=== PATIENT | female | born 1955 | race Two or more races ===

== ENCOUNTER 2024-05-21 18:13 | Emergency (ER) | payer OTHER, BC ==
[~2024-05-21] VITALS: Ht 165.1 cm; Wt 60.6 kg
[2024-05-21] MEDS ORDERED: ESCITALOPRAM OXA5 MG (18:25)
[2024-05-21] MEDS ORDERED: SODIUM CHLORIDE 0.9% 1,000 ML IV ONE (18:30)
[2024-05-21 18:40] LABS: BASOPHILS 0.8 % (0-2); HEMATOCRIT 44.6 % (35.0-50.0); HEMOGLOBIN 15.7 g/dL (12.0-18.0); MCH 35.2 (27-36); MCHC 35.1 g/dl (30-36); MCV 100.4 fl (81-99); NEUTROPHILS 80.2 % (39-80); PLATELET COUNT 405 K/uL (140-440); RBC 4.45 M/ul (4.3-5.7); RDW 12.7 (10.5-15.0)
[2024-05-21] MEDS ORDERED: ondansetron HCL 4 MG/2 ML VIAL IV PRN (18:45)
[2024-05-21 19:26] LABS: ALBUMIN 3.7 g/dL (3.4-5.0); ALBUMIN/GLOBULIN RATIO 0.95 (1.1-2.4); ALCOHOL, MEDICAL <3 ng/dL (<3); ALKALINE PHOSPHATASE 105 U/L (46-116); ALT (SGPT) 22 U/L (14-59); ANION GAP 21.2 (7-21); AST (SGOT) 14 U/L (15-37); BILIRUBIN, TOTAL 0.6 ng/dL (0.2-1.0); BUN/CREATININE RATIO 24.39 (6.0-28.6); CARBON DIOXIDE 17 mmol/L (21-32); CHLORIDE 107 mmol/L (98-107); CREATININE, SERUM 0.82 mg/dL (0.55-1.02); GLOMERULAR FILTRATION RATE,EST 76 mL/min (>60); POTASSIUM 3.2 mmol/L (3.5-5.1); PROTEIN, TOTAL 7.6 g/dL (6.4-8.2); UREA NITROGEN 20 mg/dL (7-18)
[2024-05-21 19:27] LABS: BILIRUBIN, URINE NEGATIVE (negative); BLOOD/HGB, URINE TRACE-I (Negative); KETONE, URINE >=80 (Negative); LEUK ESTERASE, URINE NEGATIVE (negative); NITRITE, URINE NEGATIVE (negative)
[2024-05-21 19:39] LABS: AMPHETAMINES, URINE NEGATIVE (NEGATIVE); BACTERIA, URINE RARE /hpf (negative); BARBITURATES, URINE NEGATIVE (NEGATIVE); BENZODIAZEPINE, URINE NEGATIVE (NEGATIVE); BUPRENORPHINE, URINE NEGATIVE (NEGATIVE); CANNABINOID, URINE POSITIVE (NEGATIVE); CASTS, URINE NONE SEEN \\lpf; COCAINE, URINE NEGATIVE (NEGATIVE); COLLECTION TYPE, URINE CLEAN CATCH; CRYSTALS, URINE NONE SEEN (0-1+); ECSTASY, URINE NEGATIVE (NEGATIVE); EPITHELIAL CELLS, URINE SQUAMOUS 1+ /lpf (0-1+); FENTANYL, URINE NEGATIVE (NEGATIVE); METHADONE, URINE NEGATIVE (NEGATIVE); OPIATES, URINE NEGATIVE (NEGATIVE); OXYCODONE, URINE NEGATIVE (NEGATIVE); PHENCYCLIDINE, URINE NEGATIVE (NEGATIVE); REFLEX CULTURE, URINE No (No)
[2024-05-21] MEDS ORDERED: HYDROmorphone HCL 1 MG/ML SYR IV PRN (20:00)
[2024-05-21] MEDS ORDERED: METOCLOPRAMIDE HCL 10 MG/2 ML SDV IV ONE (20:30)
[2024-05-21] MEDS ORDERED: HYDROCODONE BIT/ACETAMINOPHEN 5/325 MG 1 TAB HOME.PACK PO PRN (21:30)
[2024-05-21] MEDS ORDERED: ONDANSETRON 4 MG HOME.PACK SL ONE (21:30)
[2024-05-21] MEDS ORDERED: ONDANSETRON ODT8 MG PO (21:33)
[2024-05-21] MEDS ORDERED: HYDROCODON-ACE1 EA10 PO (21:33)
[2024-05-21 21:44] VITALS: BP 144/74
--- NOTE | 2024-05-24 15:37 | EKG ---
[facility] [address] [place] [address] Signed Sinus bradycardia with premature supraventricular complexes Right bundle branch block Abnormal ECG No previous ECGs available Confirmed by Mookie Camarillo MD ([id number]) on 05/24/2024 3:37:06 PM Electronically Signed By: MOOKIE CAMARILLO MD 05/24/24 1537 PATIENT NAME: GILBERT MARKS BRUCE Electrocardiogram DATE OF : 51 PHYSICIAN: MOOKIE CAMARILLO MD REPORT #: [id number] REPORT IS CONFIDENTIAL AND NOT TO BE RELEASED WITHOUT AUTHORIZATION
== END 2024-05-21 21:47 | disposition home or self-care (01) ==
LOC: ED 18:13
PROVIDERS: Emergency Medicine
DX: S32.018A Other fracture of first lumbar vertebra, initial encounter for closed fracture (principal); S32.028A Other fracture of second lumbar vertebra, initial encounter for closed fracture; W01.0XXA Fall on same level from slipping, tripping and stumbling without subsequent striking against object, initial encounter; R11.2 Nausea with vomiting, unspecified; Z79.899 Other long term (current) drug therapy
CPT/HCPCS: 36415; 70450; 71045; 74177; 80053; 80307; 81001; 84484; 85025; 93005; 93010; 96361; 96375; 96376; 99284-25; A9270; G0480; J1170; J2405; J2765; J7030; Q9967

== ENCOUNTER 2025-03-07 06:58 | Day surgery (SDC) | payer BC ==
[~2025-03-07] VITALS: Ht 154.9 cm; Wt 67.0 kg
[~2025-03-07 06:58] MED LIST: CALCIUM500 MG PO; ESCITALOPRAM OXA5 MG; HYDROCODON-ACE1 EA10 PO; LACTATED RINGER'S 1,000 ML IV SCH; MULTI VITAMIN1 EACH PO; ONDANSETRON ODT8 MG PO
[2025-03-07] MEDS ORDERED: IBLOOD GLUCOSE TEST STRIP 1 EA TEST VI PRN (07:00)
[2025-03-07] MEDS ORDERED: LIDOCAINE HCL 1% 5 ML SDV INJ ONE (07:00)
[2025-03-07 07:14] VITALS: BP 133/75
[2025-03-07] MEDS ORDERED: LIDOCAINE HCL 2% 5 ML SDV ONE (07:26)
--- NOTE | 2025-03-07 09:03 | NUR ---
03/07/25 0903 Terri Acevedo 0845- PT PRESENTS TO PACU LEFT LATERAL POSITION, NON REACTIVE TO STIMULUS. BREATHING EVEN AND NON LABORED ON ROOM AIR. LR INFUSING TO RFA IV. ABD SOFT NON DISTENDED. ALL MONITORS IN PLACE. 0855- PT STARTING TO STIR AND REACTIVE TO STIMULUS. 0857- PT OPENS EYES, REORIENTED TO TIME AND PLACE. ENCOURAGED TO PASS GAS, PT DENIES PAIN AND NAUSEA. FALLS BACK TO SLEEP.
[2025-03-07 09:40] VITALS: BP 154/74
== END 2025-03-07 09:48 | disposition home or self-care (01) ==
LOC: DS 06:58
PROVIDERS: ATTEND Surgery
PROC: 0DJD8ZZ Inspection of Lower Intestinal Tract, Via Natural or Artificial Opening Endoscopic (ICD-10-PCS; principal; 2025-03-07 08:00)
DX: Z12.11 Encounter for screening for malignant neoplasm of colon (principal); K57.30 Diverticulosis of large intestine without perforation or abscess without bleeding; K64.9 Unspecified hemorrhoids; I10 Essential (primary) hypertension; E78.5 Hyperlipidemia, unspecified; Z80.0 Family history of malignant neoplasm of digestive organs; Z79.899 Other long term (current) drug therapy
CPT/HCPCS: 00812; J2003; J2704; J7121